=== PATIENT | female | born 1950 | race Two or more races ===

== ENCOUNTER 2022-07-22 11:46 | Emergency (ER) | payer OTHER ==
[~2022-07-22] VITALS: Ht 160 cm; Wt 65.8 kg
--- NOTE | 2022-07-22 12:03 | NUR ---
FROM HOME BROUGHT IN BY SON. C/O BLOOD IN STOOL X LAST NIGHT.
--- NOTE | 2022-07-22 12:05 | NUR ---
URINE SAMPLE COLLECTED AND SENT TO LAB
[2022-07-22] MEDS ORDERED: KETOROLAC TROMETHAMINE INJ 30 MG/ML VIAL IV ONE (12:30)
[2022-07-22] MEDS ORDERED: ONDANSETRON HCL/PF - ER 4 MG/2 ML VIAL IV ONE (12:30)
[2022-07-22 12:32] LABS: BASOPHILS % (AUTO) 0.6 % (0.0-2.0); EOSINOPHILS % (AUTO) 0.5 % (0.0-6.0); HEMATOCRIT 39 % (33-45); HEMOGLOBIN 12.9 g/dL (11.5-14.8); LYMPHOCYTES # (AUTO) 1.6 K/uL (0.8-4.8); LYMPHOCYTES % (AUTO) 19.2 % (20.0-44.0); MEAN CORPUSCULAR HGB CONC 33 g/dl (31.0-36.0); MEAN CORPUSCULAR VOLUME 90 fL (82-100); MONOCYTES # (AUTO) 0.4 K/uL (0.1-1.30); MONOCYTES % (AUTO) 4.7 % (2.0-12.0); NEUTROPHILS # (AUTO) 6.3 K/uL (1.8-8.9); PLATELET COUNT (AUTO) 242 K/uL (150-450); RED BLOOD CELL COUNT(AUTO) 4.36 MIL/uL (4.0-5.2); WHITE BLOOD COUNT (AUTO) 8.4 K/uL (4.3-11.0)
[2022-07-22] MEDS ORDERED: KETOROLAC TROMETHAMINE INJ 30 MG/ML VIAL ONE (12:38)
[2022-07-22] MEDS ORDERED: ONDANSETRON HCL/PF 4 MG/2 ML VIAL ONE (12:38)
--- NOTE | 2022-07-22 12:48 | NUR ---
IV STARTED IM RIGHT AC PATENT AND DRESSED, NO S/S OF INFLITRATION.
[2022-07-22 14:44] LABS: CALCIUM, SERUM 9.3 mg/dL (8.5-10.1); CREATININE 1.1 mg/dL (0.6-1.3); POTASSIUM 4.2 mmol/L (3.5-5.1)
[2022-07-22] MEDS ORDERED: IV NS 0.9% 250 ML IV ONE (14:45)
[2022-07-22] MEDS ORDERED: CT SWABBABLE VALVE TRANS SET 1 EA INFUS.SET MC ONE (14:45)
[2022-07-22] MEDS ORDERED: IOHEXOL-300 100 ML VIAL IV ONE (14:45)
[2022-07-22 16:03] LABS: ALBUMIN 4.4 g/dL (3.4-5.0); BILIRUBIN,DIRECT 0.1 mg/dL (0.0-0.2); BILIRUBIN,TOTAL 0.4 mg/dL (0.2-1.0); TOTAL PROTEIN, SERUM 8.3 g/dL (6.4-8.2)
[2022-07-22 18:02] VITALS: BP 146/70
== END 2022-07-22 18:03 | disposition home or self-care (01) ==
LOC: ER 12:19
DX: K92.1 Melena (principal); I10 Essential (primary) hypertension; E11.9 Type 2 diabetes mellitus without complications; E03.9 Hypothyroidism, unspecified; E78.00 Pure hypercholesterolemia, unspecified; Z88.6 Allergy status to analgesic agent
CPT/HCPCS: 99285; 74177; 96374; 85025; 80048; 83690; 80076; 36415; 85730; J2405; J7050; Q9967; J1885

== ENCOUNTER 2023-04-13 17:11 | Emergency (ER) | payer OTHER, MEDICAID ==
[~2023-04-13] VITALS: Ht 154.9 cm; Wt 67.6 kg
[2023-04-13 18:54] LABS: APPEARANCE,URINE SLIGHTLY CLOUDY (CLEAR); BILIRUBIN,URINE NEGATIVE (NEGATIVE); BLOOD, URINE NEGATIVE Ery/uL (NEGATIVE); COLOR,URINE YELLOW (YELLOW); KETONES,URINE NEGATIVE (NEGATIVE); LEUKOCYTE ESTERASE ,URINE 2+ (NEGATIVE); NITRITE, URINE POSITIVE (NEGATIVE); PH,URINE 5.5 (5.0-8.0); PROTEIN,URINE NEGATIVE (NEGATIVE); UGLUCOSE NEGATIVE (NEGATIVE); UROBILINOGEN,URINE 0.2 EU/dL (0.2)
[2023-04-13] MEDS ORDERED: NITROFURANTOIN/MONOHYDRATE MACROCRYSTALS 100 MG CAPSULE PO ONE (19:00)
[2023-04-13] MEDS ORDERED: NITROFURANTOIN/MONOHYDRATE MACROCRYSTALS 100 MG CAPSULE ONE (19:35)
[2023-04-13 19:56] LABS: RBC,URINE 0-2 /HPF (0-2); WBC,URINE 21-50 /HPF (0-3)
[2023-04-13 19:57] LABS: ADD URINE CULTURE YES; BACTERIA,URINE 3+ /HPF (None Seen)
[2023-04-13] MEDS ORDERED: NITR100C6 PO (20:15)
[2023-04-13 20:21] VITALS: BP 138/69; TEMP 98.3; O2SAT 98
== END 2023-04-13 20:22 | disposition home or self-care (01) ==
LOC: ER 17:31
DX: N30.00 Acute cystitis without hematuria (principal); R35.0 Frequency of micturition; R39.15 Urgency of urination; I10 Essential (primary) hypertension; E11.9 Type 2 diabetes mellitus without complications; E78.00 Pure hypercholesterolemia, unspecified; Z88.5 Allergy status to narcotic agent; Z79.899 Other long term (current) drug therapy
CPT/HCPCS: 81001; 87086-TC

== ENCOUNTER 2024-09-05 11:26 | Emergency (ER) | payer OTHER, MEDICAID ==
[~2024-09-05] VITALS: Ht 154.9 cm; Wt 68.0 kg
[~2024-09-05 11:26] MED LIST: NITR100C6 PO
[2024-09-05 11:44] VITALS: BP 166/73; TEMP 98.4
[2024-09-05] MEDS ORDERED: GLY/480L3 TP (12:33)
[2024-09-05] MEDS ORDERED: PRED20TA PO (12:33)
[2024-09-05] MEDS ORDERED: DIPH25CA83 PO (12:33)
[2024-09-05 13:05] VITALS: O2SAT 99
== END 2024-09-05 13:05 | disposition home or self-care (01) ==
LOC: ER 11:41
DX: L30.9 Dermatitis, unspecified (principal); E03.9 Hypothyroidism, unspecified; E11.9 Type 2 diabetes mellitus without complications; E78.5 Hyperlipidemia, unspecified; I10 Essential (primary) hypertension; K21.9 Gastro-esophageal reflux disease without esophagitis; Z88.5 Allergy status to narcotic agent; Z88.6 Allergy status to analgesic agent

== ENCOUNTER 2025-03-27 13:39 | Emergency (ER) | payer MEDICARE, MEDICAID ==
[~2025-03-27] VITALS: Ht 157.5 cm; Wt 65.8 kg
[~2025-03-27 13:39] MED LIST changes: +DIPH25CA83 PO; +GLY/480L3 TP; +PRED20TA PO
[2025-03-27] MEDS ORDERED: ONDANSETRON HCL/PF 4 MG/2 ML VIAL ONE (14:09)
[2025-03-27 14:19] LABS: PLATELET COUNT (AUTO) 279 K/uL (150-450); RED BLOOD CELL COUNT(AUTO) 4.53 MIL/uL (4.0-5.2); RED CELL DISTRIBUTION WIDTH 12.7 % (11.5-15.0); WHITE BLOOD COUNT (AUTO) 9.8 K/uL (4.3-11.0)
[2025-03-27] MEDS: ONDANSETRON HCL/PF 4 MG/2 ML VIAL IVP ONE (14:26)
[2025-03-27 14:27] LABS: CALCIUM, SERUM 9.8 mg/dL (8.5-10.1); CREATININE 1.1 mg/dL (0.6-1.3); SODIUM SERUM 140 mmol/L (136-145); UREA NITROGEN, BLOOD 18 mg/dL (7-18)
[2025-03-27 14:34] LABS: ASPARTATE AMINOTRANSFERASE 22 U/L (15-37); TOTAL PROTEIN, SERUM 8.3 g/dL (6.4-8.2)
[2025-03-27] MEDS ORDERED: IOHEXOL-350 100 ML VIAL IV ONE (14:54)
[2025-03-27 15:41] LABS: APPEARANCE,URINE CLEAR (CLEAR); BLOOD, URINE 2+ Ery/uL (NEGATIVE); LEUKOCYTE ESTERASE ,URINE 2+ (NEGATIVE); NITRITE, URINE POSITIVE (NEGATIVE); UGLUCOSE TRACE mg/dL (NEGATIVE)
[2025-03-27] MEDS ORDERED: MECLIZINE HCL 25 MG TABLET ONE (16:17)
[2025-03-27] MEDS ORDERED: CEFTRIAXONE 1GM BAG (ER ONLY) 50 ML IV ONE (16:17)
[2025-03-27] MEDS ORDERED: ASPIRIN 81 MG TAB.CHEW ONE (16:18)
[2025-03-27] MEDS: CEFTRIAXONE 1 G in IV D5W 50 ML IV ONE (16:25)
[2025-03-27] MEDS: MECLIZINE HCL 25 MG TABLET PO ONE (16:25)
[2025-03-27 16:26] LABS: ADD URINE CULTURE YES
[2025-03-27] MEDS: ASPIRIN 81 MG TAB.CHEW PO ONE (16:26)
[2025-03-27] MEDS ORDERED: CEPH-570 PO (19:08)
[2025-03-27 19:21] VITALS: BP 145/65; TEMP 98.7; O2SAT 99
== END 2025-03-27 19:22 | disposition left against medical advice (07) ==
LOC: ER 13:42
DX: N39.0 Urinary tract infection, site not specified (principal); R42 Dizziness and giddiness; R11.2 Nausea with vomiting, unspecified; R94.31 Abnormal electrocardiogram [ECG] [EKG]; E11.9 Type 2 diabetes mellitus without complications; E78.00 Pure hypercholesterolemia, unspecified; I67.1 Cerebral aneurysm, nonruptured; K21.9 Gastro-esophageal reflux disease without esophagitis; I10 Essential (primary) hypertension; Z79.52 Long term (current) use of systemic steroids; Z88.5 Allergy status to narcotic agent; Z88.6 Allergy status to analgesic agent; Z86.79 Personal history of other diseases of the circulatory system
CPT/HCPCS: 99285; 70498; 96365; 71045; 96375; 93005 ×2; 70496; 85025; 80048; 87077 ×2; 87086; 83690; 80076; 87186 ×2; 81001; 36415; 84484 ×2; 82962; 70450; J8597; J0696 ×2; J2405; J7060; Q9967